=== PATIENT | male | born 1955 | race Caucasian/White ===

== ENCOUNTER 2020-03-10 15:46 | Emergency (ER) | payer MEDICARE, OTHER, SELFPAY ==
[~2020-03-10] VITALS: Ht 167.6 cm; Wt 66.0 kg
[2020-03-10] MEDS ORDERED: LISI2.5T PO (16:22)
[2020-03-10] MEDS ORDERED: METF500T17 PO (16:23)
[2020-03-10] MEDS ORDERED: ATOR-2 PO (16:23)
--- NOTE | 2020-03-10 16:26 | NUR ---
Pt arrives from triage. recently seen at [facility] [place] in [place] for reported fevers for 1 week. Pt is afebrile on arrival. Complaint of muscle aches and fatigue. at bedside. Pt has pending Covid 19 test.
[2020-03-10] MEDS ORDERED: KETOROLAC 30 MG/1 ML ONE (16:30)
[2020-03-10] MEDS ORDERED: KETOROLAC 30 MG/1 ML IM ONE (16:30)
--- NOTE | 2020-03-10 16:40 | NUR ---
Pt medicvated with Toradol. Xray, LAb at bedside.
[2020-03-10 16:51] LABS: BASOPHILS # (AUTO) 0.01 x10^3/uL (0-0.1); BASOPHILS % (AUTO) 0 % (0-1); EOSINOPHILS # (AUTO) 0.04 x10^3/uL (0-0.4); EOSINOPHILS % (AUTO) 1 % (1-7); LYMPHOCYTES # (AUTO) 0.57 x10^3/uL (1-3.4); LYMPHOCYTES % (AUTO) 15 % (22-44); MD NO; MEAN CORPUSCULAR HEMOGLOBIN 30.5 pg (27.5-34.5); MEAN CORPUSCULAR VOLUME 89.7 fL (81-97); MEAN PLATELET VOLUME 6.9 fL (7.4-10.4); MONOCYTES # (AUTO) 0.46 x10^3/uL (0.2-0.8); MONOCYTES % (AUTO) 13 % (2-9); NEUTROPHILS # (AUTO) 2.62 x10^3/uL (1.8-6.8); NEUTROPHILS % (AUTO) 71 % (42-75); PLATELET COUNT 139 x10^3/uL (130-400); RED BLOOD COUNT 3.61 x10^6/uL (4.38-5.82); RED CELL DISTRIBUTION WIDTH 13.4 % (9.4-14.8)
[2020-03-10 17:02] LABS: ALBUMIN 2.8 g/dL (3.4-5.0); ANION GAP 7 mmol/L (5-15); CALCIUM 8.4 mg/dL (8.5-10.1); CHLORIDE 94 mmol/L (98-107); CREATININE 1.24 mg/dL (0.7-1.3)
--- NOTE | 2020-03-10 17:19 | NUR ---
Pt sleeping, no noticable distress.
--- NOTE | 2020-03-10 18:10 | NUR ---
Blood CX obtained, UA sent. Pt resting. Family at bedside.
[2020-03-10 18:12] LABS: MICROSCOPIC INDICATED
[2020-03-10] MEDS ORDERED: ACETAMINOPHEN 500 MG TABLET ONE (19:09)
--- NOTE | 2020-03-10 19:16 | NUR ---
Pt given tylenol prior to DC
[2020-03-10 19:17] VITALS: BP 147/77
[2020-03-10] MEDS ORDERED: ACETAMINOPHEN 500 MG TABLET PO ONE (19:30)
== END 2020-03-10 19:25 | disposition home or self-care (01) ==
LOC: ED 19:15
DX: B34.9 Viral infection, unspecified (principal); I10 Essential (primary) hypertension; E11.9 Type 2 diabetes mellitus without complications; F17.200 Nicotine dependence, unspecified, uncomplicated
CPT/HCPCS: 36415; 71045; 80048; 81001; 82040; 85025; 87040; 96372; 99284; J1885

== ENCOUNTER 2020-03-21 23:57 | Emergency (ER) | payer MEDICARE ==
[~2020-03-21] VITALS: Ht 167.6 cm; Wt 62.7 kg
[~2020-03-21 23:57] MED LIST: ATOR-2 PO; LISI2.5T PO; METF500T17 PO
[2020-03-22] VITALS: BP 125/65
[2020-03-22 00:54] LABS: ALBUMIN 2.6 g/dL (3.4-5.0); ANION GAP 8 mmol/L (5-15); CALCIUM 9.2 mg/dL (8.5-10.1); CHLORIDE 97 mmol/L (98-107); CREATININE 1.37 mg/dL (0.7-1.3)
--- NOTE | 2020-03-22 00:55 | NUR ---
PT AMBULATED TO ROOM 31 C/O FEVER AND FATIGUE FOR APPROX 2 WEEKS. PT WAS SEEN HERE RECENTLY FOR SIMILAR COMPLAINT. PT REPORTS FEVER OF 102, AFEBRILE IN TRIAGE. PT A&OX4, RESP EVEN AND UNLABORED. MONITORS IN PLACE
[2020-03-22 00:57] LABS: TROPONIN I < 0.015 ng/mL (0.000-0.045)
[2020-03-22 01:09] LABS: BASOPHILS # (AUTO) 0.05 x10^3/uL (0-0.1); BASOPHILS % (AUTO) 1 % (0-1); EOSINOPHILS # (AUTO) 0.04 x10^3/uL (0-0.4); EOSINOPHILS % (AUTO) 1 % (1-7); LYMPHOCYTES # (AUTO) 2.39 x10^3/uL (1-3.4); LYMPHOCYTES % (AUTO) 29 % (22-44); MD NO; MEAN CORPUSCULAR HEMOGLOBIN 29.9 pg (27.5-34.5); MEAN CORPUSCULAR HGB CONC 34.1 g/dL (33.2-36.2); MEAN PLATELET VOLUME 6.2 fL (7.4-10.4); MONOCYTES # (AUTO) 1.05 x10^3/uL (0.2-0.8); MONOCYTES % (AUTO) 13 % (2-9); NEUTROPHILS # (AUTO) 4.62 x10^3/uL (1.8-6.8); NEUTROPHILS % (AUTO) 57 % (42-75); PLATELET COUNT 458 x10^3/uL (130-400); RED BLOOD COUNT 3.36 x10^6/uL (4.38-5.82); RED CELL DISTRIBUTION WIDTH 13.1 % (9.4-14.8)
--- NOTE | 2020-03-22 01:55 | NUR ---
Patient given discharge instructions and they have confirmed that they understand the instructions. Patient ambulatory with steady gait. NAD.
== END 2020-03-22 01:56 | disposition home or self-care (01) ==
LOC: ED 03-22 00:25
DX: R50.9 Fever, unspecified (principal); Z20.828 Contact with and (suspected) exposure to other viral communicable diseases; M79.10 Myalgia, unspecified site; R94.31 Abnormal electrocardiogram [ECG] [EKG]; F17.210 Nicotine dependence, cigarettes, uncomplicated; I10 Essential (primary) hypertension; E11.9 Type 2 diabetes mellitus without complications
CPT/HCPCS: 36415; 71045; 80048; 82040; 84484; 85025; 87635; 93005; 99285; 99406